=== PATIENT | female | born 1970 | race American Indian/Alaskan Native ===

== ENCOUNTER 2020-07-13 15:10 | Observation (INO) | payer MEDICAID, OTHER ==
--- NOTE | 2020-07-05 12:44 | Anesthesia Consultation ---
Anesthesia Consult and Med Hx Date of service: 07/07/20 - Airway Anesthetic Teeth Evaluation: Good, Crowns ROM Head & Neck: Adequate Mental/Hyoid Distance: Adequate Mallampati Class: Class II Intubation Access Assessment: Probably Good - Pre-Operative Health Status ASA Pre-Surgery Classification: ASA2 Proposed Anesthetic Plan: General Nerve Block: TAP - Pulmonary Hx Asthma: No (+2FS) COPD: No Hx Pneumonia: No - Cardiovascular System Hx Hypertension: No (Had impending CHF when Hgb got to 2 in 2007) - Central Nervous System Hx Psychiatric Problems: No - Endocrine Hx Renal Disease: Yes (in 2007 with low Hgb) Hx End Stage Renal Disease: No - Hematic Hx Anemia: Yes - Other Systems Hx Alcohol Use: Yes (Occas) Hx Cancer: No Hx Obesity: Yes - Additional Comments Anesthesia Medical History Comments: Valeriano barnett-discussed possible decreased effectiveness of TAP block
[2020-07-05 13:02] LABS: Basophils % (Auto) 1.1 % (0.0-1.8); Eosinophils # (Auto) 0.1 K/mm3 (0.0-0.4); Eosinophils % (Auto) 3.5 % (0.0-4.3); Hematocrit 35.7 % (30.3-42.9); Hemoglobin 11.7 gm/dl (10.1-14.3); Lymphocytes # (Auto) 1.6 K/mm3 (1.2-5.4); Lymphocytes % (Auto) 41.8 % (13.4-35.0); Mean Corpuscular HGB Conc 33 % (30-34); Mean Corpuscular Volume 83 fl (79-97); Monocytes # (Auto) 0.5 K/mm3 (0.0-0.8); Monocytes % (Auto) 13.7 % (0.0-7.3); Platelet Count 260 K/mm3 (140-440); Red Blood Count 4.31 M/mm3 (3.65-5.03)
--- NOTE | 2020-07-13 11:24 | Anesthesia Day of Surgery ---
Anesthesia Day of Surgery - Day of Surgery Patient Examined: Yes Patient H&P Reviewed: Yes Patient is NPO: Yes
[2020-07-13] MEDS: GABAPENTIN 300 MG CAP PO NR ×2 (11:35→12:39)
--- NOTE | 2020-07-13 12:40 | History and Physical Report ---
History of Present Illness Date of examination: 07/13/20 Date of admission: 07/13/2020 Chief complaint: uterine fibroids History of present illness: 49y/o with symptomatic uterine fibroids. She complains of pelvic pain and discomfort. Pelvic ultrasound demonstrated an enlarged fibroid uterus with the largest leiomyoma being 3.3cm. The patient has elected for definitive surgical management. 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 Social history: single - Obstetrical History : 3 Para: 3 Hx # Term Pregnancies: 3 Number of Pregnancies: 0 Spontaneous Abortions: 0 Induced : 0 Number of Living Children: 3 Medications and Allergies Allergies Allergy/AdvReac Type Severity Reaction Status Date / Time latex Allergy Shortness Verified 06/30/20 11:24 of Breath Home Medications Medication Instructions Recorded Confirmed Last Taken Type No Known Home Medications [No 06/30/20 06/30/20 Unknown History Reported Home Medications] Active Meds: Active Medications Cefazolin Sodium (Ancef/Sterile Water 2 Gm/20 Ml) 2 gm IV PREOP NR Stop: 07/13/20 23:00 Celecoxib (Celebrex) 400 mg PO PREOP NR Stop: 07/13/20 23:59 Last Admin: 07/13/20 11:35 Dose: 400 mg Documented by: Gabapentin (Gabapentin) 300 mg PO PREOP NR Stop: 07/13/20 23:59 Last Admin: 07/13/20 11:35 Dose: 300 mg Documented by: Lactated Ringer's (Lactated Ringers) 1,000 mls @ 125 mls/hr IV DIRECT BRIELLE Midazolam HCl (Versed) 2 mg IV PREOP NR Stop: 07/13/20 23:59 Review of Systems All systems: negative Genitourinary: vaginal bleeding, pelvic pain - Vital Signs Vital signs: Vital Signs Temp Pulse Resp BP Pulse Ox 98.2 F 60 18 116/63 100 07/05/20 12:15 07/05/20 12:15 07/05/20 12:15 07/05/20 12:15 07/05/20 12:15 Temp Pulse Resp BP Pulse Ox 98.1 F 62 14 113/70 100 07/13/20 11:10 07/13/20 12:02 07/13/20 12:33 07/13/20 12:02 07/13/20 12:02 - Physical Exam Breasts: Positive: deferred Cardiovascular: Regular rate Lungs: Positive: Clear to auscultation Abdomen: Positive: normal appearance Results Result Diagrams: 07/05/20 10:00 All other labs normal. Assessment and Plan - Patient Problems (1) Leiomyoma Status: Acute Plan to address problem: scheduled for a robotic hysterectomy (2) Dysmenorrhea Status: Acute
--- NOTE | 2020-07-13 14:50 | Operative Report ---
Operative Report Operative Report: Date of surgery: July 13, 2020 Preoperative diagnoses: Symptomatic uterine fibroids; menorrhagia; dysmenorrhea Postoperative diagnoses: Same as above Procedure: Robotic hysterectomy; bilateral salpingectomy Surgeon: Jessica Cuevas M.D. Auditing Control Clerk: Gertrudis Huffman Anesthesia: Gen. endotracheal anesthesia Estimated blood loss: 100 mL Pathology: Uterus, cervix, leiomyomas, bilateral tubes Indication: 49-year-old -0-0-3 with a history of symptomatic uterine fibroids. The patient elected to undergo definitive surgical management. Procedure: The patient was taken to the operating room and given general endotracheal anesthesia without complication. She is prepped and draped in a normal sterile fashion. A bivalve speculum was placed in the patient's vagina and a single- tooth tenaculum placed on the anterior lip of the cervix. The uterus was sounded with the uterine sound. A EnWave uterine manipulator was placed in the bivalve speculum was then removed. Attention was then turned to the patient's abdomen where a millimeter supra umbilical skin incision was then made. A Veress needle was placed and peritoneal entry was verified water-filled syringe. Insufflation of the peritoneal cavity was performed with CO2 gas. The 12 mm trocar was then placed under direct visualization. An additional 8 mm trocar was placed on the patient's left and right lateral side just opposite of the supraumbilical trocar. An additional 8 mm right lateral trocar was then placed as the accessory port. The supraumbilical 12 mm trocar site was closed with the Dean Jackson device and 0-vicryl suture. The patient was then placed in steep Trendelenburg. The da Ruby robot was then engaged. A fenestrated forcep was placed in arm 2 and a vessel sealer was placed in arm 1. General survey revealed an enlarged fibroid uterus with multiple leiomyomas. The tubes and ovaries were normal in appearance. The surgeon then transferred to the surgical console. The mesosalpinx was then isolated on the right. The vessel sealer was used to coagulate the mesosalpinx which was then transected. The tube was transected from the ovary. The tubo-ovarian ligament was then coagulated and transected. The round ligament was then coagulated and transected also. The vesicouterine peritoneum was then entered from the patient's right side. The uterine vessels were then coagulated with the vessel sealer. The vessels were then transected . Attention was then turned to the patient's left side where the tubo-ovarian ligament and mesosalpinx were again isolated coagulated and transected. The vesical peritoneum was then entered from the left and joined in the midline. Peritoneum was reflected off of the lower uterine segment. Uterine vessels were then coagulated and then transected. The blood supply to the uterus was adequately contained, a posterior colpotomy was made. The V care ring was visualized. Posterior colpotomy was created with the monopolar scissors. The incision was continued circumferentially until anterior colpotomy was made. The cervix and uterus were amputated from the vaginal cuff. The uterus was bivalved in order to facilitate delivery through the vagina. The uterus was then removed along with the tubes bilaterally through the vagina and a warm laparotomy sponge was placed and maintain the pneumoperitoneum. The vaginal cuff was then closed in a running fashion with V lock suture. Irrigation of the pelvis was performed. Hemoblast was applied to the incision. The skin was then reapproximated with 4-0 Monocryl. The tissue was sent to pathology which included the cervix, leiomyomas, bilateral tubes and uterus. The patient was then successfully extubated. She was then taken to the recovery room in stable condition. All sponge laps and needle counts were correct x2.
[~2020-07-13 15:10] MED LIST: ACETAMINOPHEN 325 MG TAB PO PRN; ACETAMINOPHEN 500 MG TAB ONE; ACETAMINOPHEN 500 MG TAB PO ONE; BUPIVACAINE-EPINEPHRINE/PF 0.25%-1:200,000 (30 ML) VIAL INFILTRATI ONE; CELECOXIB 200 MG CAP PO NR; D5W/LACTATED RINGERS 1,000 ML IV SCH; GABAPENTIN 300 MG CAP PO NR; GLYCOPYRROLATE 0.4 MG/2 ML INJ ONE; HYDROmorphone 1 MG/1 ML INJ ONE; IBUPROFEN 800 MG TAB PO PRN; LACTATED RINGERS 1,000 ML IV SCH; LIDOCAINE MPF (2%) 20 MG/1 ML VIAL 5 ML ONE; MAGNESIUM HYDROXIDE (MOM) ORAL LIQD UDC PO PRN; MAGNESIUM OXIDE 400 MG TAB PO ONE; MIDAZOLAM 2 MG/2 ML INJ IV NR; MORPHINE 4 MG/1 ML INJ IV PRN; NEOMY 40 MG/POLYMYXIN B 200,000 UNITS/ML (GU) AMPULE IR ONE; NEOSTIGMINE 10MG/10 ML INJ MDV ONE; ONDANSETRON 4 MG/2 ML INJ IV PRN; ONDANSETRON 4 MG/2 ML INJ ONE; PHENYLEPHRINE/NS 1,000 MCG/10 ML SYRINGE (OR USE) IV ONE; ROCURONIUM 50 MG/5 ML INJ IV ONE; SODIUM CHLORIDE 0.9% IRR 1,500 ML BOTTLE IR ONE; SODIUM CHLORIDE 0.9% IRRIG SOLN 2000 ML IR ONE; SUCCINYLCHOLINE CHLORIDE 200 MG/10 ML INJ MDV ONE; ceFAZolin/STERILE WATER 2 GM/20 ML SYRINGE IV NR; dexAMETHasone 20 MG/5 ML VIAL ONE; ePHEDrine SULFATE 50 MG/1 ML INJ ONE; fentaNYL 100 MCG/2 ML INJ IV ONE; fentaNYL 100 MCG/2 ML INJ ONE; oxyCODONE /ACETAMINOPHEN 5-325MG TAB PO PRN; propofoL 200 MG/20 ML VIAL IV ONE
[2020-07-13] MEDS ORDERED: D5W/LACTATED RINGERS 1,000 ML IV ONE (16:16)
--- NOTE | 2020-07-13 17:02 | Post Anesthesia Evaluation ---
- Post Anesthesia Evaluation Patient Participated: Yes Airway Patent: Yes Stable Respiratory Function: Yes Nausea/Vomiting: No Temp > 96.8F: Yes Pain Manageable: Yes Adequeate Hydration: Yes Anesthesia Complications: No Block Receding Appropriately: Not Applicable Patient on Ventilator: No
[2020-07-13] MEDS: KETOROLAC 30 MG/1 ML INJ IV SCH ×2 (17:09→21:00)
[2020-07-13] MEDS ORDERED: ZOLPIDEM 5 MG TAB PO PRN (22:00)
[2020-07-14] MEDS: KETOROLAC 30 MG/1 ML INJ IV SCH (03:20)
[2020-07-14 05:26] LABS: Hematocrit 31.7 % (30.3-42.9); Hemoglobin 10.3 gm/dl (10.1-14.3)
[2020-07-14 08:06] VITALS: BP 111/62
--- NOTE | 2020-07-14 11:19 | Progress Note ---
Assessment and Plan - Patient Problems (1) Leiomyoma Current Visit: No Status: Acute Plan to address problem: Patient doing well Advance regular diet Discharge home (2) Dysmenorrhea Current Visit: No Status: Acute Subjective - Subjective Date of service: 07/14/20 Interval history: Patient reports doing well. Her pain is well controlled. She is tolerating her diet without complication. Patient reports: appetite normal, pain well controlled Objective - Vital Signs Latest vital signs: Vital Signs Temp Pulse Resp BP BP Pulse Ox 07/14/20 08:03 98.5 F 62 18 111/62 100 07/14/20 06:30 98.1 F 77 20 101/50 99 07/14/20 01:13 98.2 F 67 20 103/51 93 07/13/20 19:56 98.1 F 59 L 20 115/58 100 07/13/20 16:33 97.5 F L 49 L 144/66 99 07/13/20 16:00 97.6 F 58 L 13 131/70 100 07/13/20 15:45 49 L 14 140/72 100 07/13/20 15:30 50 L 15 142/73 100 07/13/20 15:25 59 L 14 127/73 100 07/13/20 15:20 45 L 15 120/63 100 07/13/20 15:15 46 L 15 131/71 100 07/13/20 15:10 60 17 144/75 100 07/13/20 15:07 96.9 F L 55 L 16 148/81 100 07/13/20 12:43 16 07/13/20 12:33 14 07/13/20 12:02 62 14 113/70 100 07/13/20 11:58 58 L 13 111/67 100 07/13/20 11:52 54 L 15 121/75 100 07/13/20 11:48 51 L 16 122/71 100 07/13/20 11:43 51 L 16 125/69 100 07/13/20 11:35 98.1 F 54 L 18 110/57 100 Intake and Output 07/13/20 07/14/20 07/14/20 22:59 06:59 14:59 Intake Total 840 360 360 Output Total 515 800 Balance 325 -440 360 Intake: IV 600 Oral 240 360 360 Output: Urine 515 800 Indwelling Catheter 100 800 Other: Total, Intake Amount 240 120 360 Total, Output Amount 100 800 Voiding Method Toilet # Voids Void 1 - Exam Abdomen: Present: normal appearance
--- NOTE | 2020-07-14 11:20 | Discharge Summary ---
Providers - Providers Date of Admission: 07/13/20 15:11 Date of discharge: 07/14/20 Attending physician: MARLIN MORALES Primary care physician: [employer] OFFICER Hospitalization Reason for admission: other (Uterine fibroids) Procedure: other (Robotic hysterectomy and bilateral salpingectomy) Incision: normal Discharge diagnosis: other (Uterine fibroids) Hospital course: The patient was admitted the day of surgery underwent a robotic hysterectomy and bilateral salpingectomy. Please see operative note for details of surgery. Her postoperative course was uneventful. Condition at discharge: Good Disposition: [id number] TO HOME OR SELFCARE - Discharge Diagnoses (1) Leiomyoma Status: Acute (2) Dysmenorrhea Status: Acute Plan - Discharge Medications Prescriptions: Ibuprofen [Motrin] 800 mg PO Q8HR PRN #60 tablet PRN Reason: Pain , Severe (7-10) oxyCODONE /ACETAMINOPHEN [Percocet 5/325] 1 tab PO Q6HR PRN #30 tablet PRN Reason: Pain - Provider Discharge Summary Activity: no sex for 6 weeks, no heavy lifting 4 weeks, no strenuous exercise Diet: routine Instructions: routine Additional instructions: [] Smoking cessation referral if applicable(refer to patient education folder for contact #) [] Refer to [facility] Booklet Call your doctor immediately for: * Fever > 100.5 * Heavy vaginal bleeding ( >1 pad per hour) * Severe persistent headache * Shortness of breath * Reddened, hot, painful area to leg or breast * Drainage or odor from incision. * Keep incision clean and dry at all times and follow doctor's instructions regarding bathing/showering Schedule follow-up in 4 weeks - Follow up plan Forms: [facility] Discharge Summary
== END 2020-07-14 11:00 | disposition home or self-care (01) ==
LOC: OR 15:10 → OB 15:11
PROVIDERS: ADMIT Obstetrics & Gynecology; ATTEND Obstetrics & Gynecology
DX: D25.9 Leiomyoma of uterus, unspecified (principal); N94.6 Dysmenorrhea, unspecified; N92.0 Excessive and frequent menstruation with regular cycle; Z98.84 Bariatric surgery status; Z98.51 Tubal ligation status; Z91.040 Latex allergy status
CPT/HCPCS: 36415; 58573; 64450; 81025; 84703; 85014; 85018; 85025; 86850; 86900; 86901; 88302; 88307; 96361; 96374; 96376; A4217; G0378; J0330; J0690; J1100; J1170; J1885; J2250; J2370; J2405; J2704; J2710; J3010; J7120; J7121; S2900